=== PATIENT | female | born 1995 | race Caucasian/White ===

== ENCOUNTER 2021-02-03 06:41 | Emergency (ER) | payer BC ==
[~2021-02-03] VITALS: Ht 182.9 cm; Wt 79.5 kg
[2021-02-03] MEDS ORDERED: ALPRAZolam 0.25 MG TABLET PO ONE (07:15)
[2021-02-03] MEDS ORDERED: ALBUTEROL SULFATE 2.5 MG/3 ML NEBU. NEB ONE (07:15)
[2021-02-03 07:55] LABS: BACTERIA,URINE FEW /HPF (0-FEW); BILIRUBIN,URINE NEG (NEG); CLARITY,URINE CLEAR; COLOR,URINE YELLOW; GLUCOSE,URINE NEG (NEG); NITRITE,URINE NEG (NEG); RBC,URINE OCC /HPF (0-2); UROBILINOGEN,URINE 0.2 mg/dL (0.2 mg/dL)
[2021-02-03 07:56] LABS: SQUAMOUS EPITHELIAL CELL,UR MOD /LPF
--- NOTE | 2021-02-03 08:01 | RAD ---
XR CHEST 1V INDICATION: soa COMPARISON STUDY: None. FINDINGS: Lungs: Normal lung volume. No pulmonary mass or consolidation. The tracheobronchial tree and hilar st ructures are normal. Pleura: No pleural effusion or pneumothorax. Heart and Mediastinum: The cardiomediastinal silhouette is normal. The great vessels of the thorax ar e normal. Bones and Soft Tissues: The bones and soft tissues are within normal limits. IMPRESSION: No consolidation. Electronically signed by: Lico Nathan MD (02/03/2021 7:59 AM) [id number]
--- NOTE | 2021-02-03 08:11 | RAD ---
EXAM: Pelvic sonogram. HISTORY: Pain. TECHNIQUE: Transabdominal sonographic imaging of the pelvis was performed. COMPARISON: None. FINDINGS: The uterus measures 8.4 x 5.3 x 3.0 cm. The endometrial stripe measures 4 mm in thickness. There is an intrauterine contraceptive device in expected position within the endometrial cavity. The ovaries are normal in size and demonstrate normal blood flow. There is no pelvic free fluid. IMPRESSION: 1. IUD in expected position. 2. Otherwise, unremarkable pelvic sonogram. Electronically signed by: Dahiana Segal MD (02/03/2021 8:08 AM) [id number]
--- NOTE | 2021-02-03 08:18 | PHYS DOC ---
Past History Additional Past Medical Histor: SVT with ablation Past Surgical History: Other Additional Past Surgical Histo: SVT with ablation Alcohol Use: None General Adult EDM: Chief Complaint: GI PROBLEM HPI: HPI: 25 yo F presents to the ed with her friend, (patient consents to his/her/their knowledge and involvement in pts' medical care), complains of bilateral, sharp, nonradiating, lower abdominal pain that started after waking up to her alarm at 530 this morning with associated nausea. Last bowel movement was last night, normal brown color. Kyleena placed December 30 for prevention. Was taking oral control pill for 10 years and wanted "something easier." Had vaginal spotting last week. Past medical history of ovarian cysts and SVT with ablation in 2011. Reports for the past week she has had a sore throat, cough, nasal congestion and nausea. History of Covid last year and has received her moderna vaccination. No sexual activity for the past 2 years, male partners. History of treated chlamydia. Denies any associated vaginal bleeding, dysuria, hematuria, increased urinary frequency urgency, flank pain, or abnormal vaginal discharge/itching/odor. Review of Systems: Review of Systems: Constitutional: Denies fever or chills Eyes: Denies change in visual acuity HENT: Denies rhinorrhea, hoarse voice Respiratory: Denies hemoptysis or shortness of breath Cardiovascular: Denies chest pain or edema GI: Denies constipation, vomiting, bloody stools or diarrhea : Denies dysuria or vaginal bleeding Musculoskeletal: Denies back pain or joint pain or flank pain Integument: Denies rash or diaphoresis Neurologic: Denies headache, focal weakness or sensory changes Endocrine: Denies polyuria or polydipsia Lymphatic: Denies swollen glands Psychiatric: Denies depression or anxiety Current Medications: Current Meds: Current Medications Medications (Trade) Dose Ordered Sig/Melissa Start Time Stop Time Status Last Admin Dose Admin Albuterol Sulfate (Ventolin) 2.5 mg 1X ONCE 02/03/21 07:15 02/03/21 07:29 DC Alprazolam (Xanax) 0.25 mg 1X ONCE 02/03/21 07:15 02/03/21 07:29 DC Allergies: Allergies: Allergies Coded Allergies Type Severity Reaction Last Updated Verified No Known Drug Allergies 02/03/21 No Physical Exam: PE: Constitutional: Well developed, well nourished, no acute distress, non-toxic appearance. HENT: Normocephalic, atraumatic, Eyes: EOMI, conjunctiva normal, no discharge. Neck: Normal range of motion, supple, Cardiovascular: S1/2 present, regular rhythm Lungs & Thorax: Speaking in full sentences, bilateral equal chest rise, no tachypnea or increased work of breathing Abdomen: soft, no distention/rigidity/guarding, reports left lower quadrant and right lower quadrant pain with no McBurney's point tenderness or Rovsing sign, mildly uncomfortable with palpation-pain alleviated when putting her knees to her chest Skin: Warm, dry, no erythema, no rash. [] Back: No tenderness, no CVA tenderness. [] Extremities: No tenderness, no cyanosis, no lower extremity edema Neurologic: Alert and oriented X 3, normal motor function, normal sensory function, no focal deficits noted. [] Psychologic: Affect normal, judgement normal, mood normal. [] Current Patient Data: Labs: Laboratory Tests Test 02/03/21 07:17 02/03/21 07:32 Urine Collection Type Void Urine Color Yellow Urine Clarity Clear Urine pH 6.0 Urine Specific [place] 1.025 Urine Protein Neg (NEG-TRACE) Urine Glucose (UA) Neg mg/dL (NEG) Urine Ketones (Stick) Neg mg/dL (NEG) Urine Blood Trace (NEG) Urine Nitrite Neg (NEG) Urine Bilirubin Neg (NEG) Urine Urobilinogen Dipstick 0.2 mg/dL (0.2 mg/dL) Urine Leukocyte Esterase Neg (NEG) Urine RBC Occ /HPF (0-2) Urine WBC 1-4 /HPF (0-4) Urine Squamous Epithelial Cells Mod /LPF Urine Bacteria Few /HPF (0-FEW) POC Urine HCG, Qualitative hcg negative (Negative) Vital Signs: Vital Signs Date Time Temp Pulse Resp B/P (MAP) Pulse Ox O2 Delivery O2 Flow Rate FiO2 02/03/21 07:16 98.2 94 18 137/63 (87) 94 Room Air EKG: EKG: [] Radiology/Procedures: Radiology/Procedures: IMAGING REPORT Signed PATIENT: JOSÉ MIGUEL JAQUEZ ACCOUNT: [id number] : 1995 LOCATION: ER AGE: 25 SEX: F EXAM STATUS: REG ER ORD. PHYSICIAN: ROBERT GATICA DO REASON: soa PROCEDURE: CHEST AP ONLY XR CHEST 1V INDICATION: soa COMPARISON STUDY: None. FINDINGS: Lungs: Normal lung volume. No pulmonary mass or consolidation. The tracheobronchial tree and hilar structures are normal. Pleura: No pleural effusion or pneumothorax. Heart and Mediastinum: The cardiomediastinal silhouette is normal. The great vessels of the thorax are normal. Bones and Soft Tissues: The bones and soft tissues are within normal limits. IMPRESSION: No consolidation. Electronically signed by: Janell Nathan MD (02/03/2021 7:59 AM) [id number] DICTATED AND SIGNED BY: JANELL NATHAN MD DATE: 02/03/21 0758 CC: DAHIANA MEANS MD; ROBERT GATICA DO ~MTH0 0 IMAGING REPORT Signed PATIENT: JOSÉ MIGUEL JAQUEZ ACCOUNT: [id number] : 1995 LOCATION: ER AGE: 25 SEX: F EXAM STATUS: REG ER ORD. PHYSICIAN: ROBERT GATICA DO REASON: lower abd pain - 75mls omni 300 PROCEDURE: CT ABD PELV W/ IV CONTRST ONLY EXAM: Abdomen and pelvis CT with intravenous contrast. HISTORY: Pain. TECHNIQUE: Computed tomographic images of the abdomen and pelvis were obtained following the administration of intravenous contrast. Multiplanar reformatting was performed. *One or more of the following individualized dose reduction techniques were utilized for this examination: 1. Automated exposure control. 2. Adjustment of the mA and/or kV according to patient size. 3. Use of iterative reconstruction technique. COMPARISON: None. FINDINGS: Evaluation of the lower thorax demonstrates minimal posterior dependent and basilar atelectasis. There is no infiltrate or pleural effusion. No hepatic lesion is seen. The gallbladder, pancreas, spleen, stomach, adrenal glands and kidneys are unremarkable. There is no appendicitis. There is no bowel obstruction. There is no abnormal bowel wall thickening. The urinary bladder is unremarkable. There is an intrauterine contraceptive device within the endometrial cavity. There are multiple bilateral ovarian follicles. There is a dominant right ovarian follicle/follicular cyst measuring 2.0 cm. The aorta is normal in caliber. There is a retroaortic left renal vein, a normal variant. There are multiple prominent lymph nodes within the root of mesentery and pericecal distribution. This is typically physiologic in a patient of this age. There is no acute or suspicious osseous finding. IMPRESSION: 1. 2.0 cm physiologic dominant right ovarian follicle/follicular cyst. 2. Multiple prominent lymph nodes within the embryo the mesentery and pericecal distribution, within physiologic limits for patient age. 3. No evidence of appendicitis. Electronically signed by: Dahiana Barnes MD (02/03/2021 9:19 AM) [id number] no DICTATED AND SIGNED BY: DAHIANA BARNES MD DATE: 02/03/21915 CC: DAHIANA MEANS MD; ROBERT GATICA DO ~MTH0 0 IMAGING REPORT Signed PATIENT: JOSÉ MIGUEL JAQUEZ ACCOUNT: [id number] : 1995 LOCATION: ER AGE: 25 SEX: F EXAM STATUS: REG ER ORD. PHYSICIAN: ROBERT GATICA DO REASON: pelvic pain, r/o torsion or iud malposition PROCEDURE: PELVIS COMPLETE EXAM: Pelvic sonogram. HISTORY: Pain. TECHNIQUE: Transabdominal sonographic imaging of the pelvis was performed. COMPARISON: None. FINDINGS: The uterus measures 8.4 x 5.3 x 3.0 cm. The endometrial stripe measures 4 mm in thickness. There is an intrauterine contraceptive device in expected position within the endometrial cavity. The ovaries are normal in size and demonstrate normal blood flow. There is no pelvic free fluid. IMPRESSION: 1. IUD in expected position. 2. Otherwise, unremarkable pelvic sonogram. Electronically signed by: Dahiana Barnes MD (02/03/2021 8:08 AM) [id number] DICTATED AND SIGNED BY: DAHIANA BARNES MD DATE: 02/03/21807 CC: DAHIANA MEANS MD; ROBERT GATICA DO ~MTH0 0 Heart Score: C/O Chest Pain: No Risk Factors: Risk Factors: DM, Current or recent (<one month) smoker, HTN, HLP, family history of CAD, obesity. Risk Scores: Score 0 - 3: 2.5% MACE over next 6 weeks - Discharge Home Score 4 - 6: 20.3% MACE over next 6 weeks - Admit for Clinical Observation Score 7 - 10: 72.7% MACE over next 6 weeks - Early Invasive Strategies Course & Med Decision Making: Course & Med Decision Making Pertinent Labs and Imaging studies reviewed. (See chart for details) Patient calm, sleeping, no active distress. Patient states Toradol relieved her symptoms and pain is almost gone/tolerable. No IUD malposition, blood flow to both ovaries on US. CT with no evidence of bowel obstruction or appendicitis, concern for right ovarian cyst. Pt HD and in no distress. Will discharge home with strict ED return precautions were given for severe pain, fever, abnormal vaginal discharge or urinary complaints. Encouraged urgent outpatient follow-up with PMD and INTERVENTIONAL NEURORADIOLOGIST for definitive management pelvic pain, to consider Pap smear and STI testing. Life-threatening processes were considered but are low suspicion at this time, given history, physical exam and ED workup. Pt was educated on all prescription medications and adverse effects. All patient's questions were answered and pt was stable at time of discharge. Life/limb-threatening differential includes but is not limited to, ectopic , septic , sepsis/infection (endometritis, sti/pid, cystitis, pyelonephritis, Carmela's gangrene or necrotizing fasciitis, abscess), ovarian torsion, ruptured hemorrhagic ovarian cyst, endometriosis, ureterolithiasis, thrombophlebitis, hemorrhage/DIC, organ prolapse, abdominal aortic aneurysm, mesenteric ischemia, neoplasm, bowel obstruction or surgical abdomen. I have spoken with the patient and/or caregivers. I explained the patient's condition, diagnoses and treatment plan based on the information available to me at this time. I have answered the patient and/or caregiver's questions and addressed any concerns. The patient and/or caregivers have a good understanding of patient's diagnosis, condition and treatment plan as can be expected at this point. Vital signs have been stable. Patient's condition is stable and appropriate for discharge from the emergency department. Patient will pursue further outpatient evaluation with primary care physician or other designated or consulting physician as outlined in the discharge instructions. The patient and/or caregivers are agreeable to this plan of care and follow-up instructions have been explained in detail. The patient and/or caregivers have received these instructions in written form and have expressed an understanding of the discharge instructions. The patient and/or caregivers are aware that any significant change of condition or worsening of symptoms should prompt immediate return to this or the closest emergency department or call to 911. Alejandro Disclaimer: Alejandro Disclaimer: This electronic medical record was generated, in whole or in part, using a voice recognition dictation system. Departure Departure: Impression: Primary Impression: Abdominal pain Additional Impression: Right ovarian cyst Disposition: HOME / SELF CARE / HOMELESS Condition: STABLE Referrals: DAHIANA MEANS MD (PCP) Follow-up with your primary care physician in 24 to 48 hours OR FOLLOW UP WITH FAMILY MEDICINE: [address] [place] [address] Patient Instructions: Abdominal Pain, Ovarian Cyst Additional Instructions: FOLLOW UP WITH INTERVENTIONAL NEURORADIOLOGIST: FOR DEFINITIVE MANAGEMENT of pelvic pain, consider pap exam [facility] [address] [place] [address] EMERGENCY DEPARTMENT GENERAL DISCHARGE INSTRUCTIONS Thank you for coming to [facility] (ED) today and trusting us with you care. We trust that you had a positivie experience in our Emergency Department. If you wish to speak to the department management, you may call the director at [phone]. YOUR FOLLOW UP INSTRUCTIONS ARE FOLLOWS: 1. Do you have a private Doctor? If you do not have a private doctor, please ask for a resource list of physicians or clinics that may be able to assist you with follow up care. 2. The Emergency Physician has interpreted your x-rays. The X-Ray specialist will also review them. If there is a change in the findings, you will be notified in 48 hours when at all possible. 3. A lab test or culture has been done, your results will be reviewed and you will be notified if you need a change in treatment. ADDITIONAL INSTRUCTIONS AND INFORMATION: 1. Your care today has been supervised by a physician who is specially trained in emergency care. Many problems require more than one evaluation for a complete diagnosis and treatment. We recommend that you schedule your follow up appointment as recommended to ensure complete treatment of you illness or injury. If you are unable to obtain follow up care and continue to have a problem, or if your condition worsens, we recommend that you return to the ED. 2. We are not able to safely determine your condition over the phone nor are we able to give sound medical advice over the phone. For these safety reasons, if you call for medical advice we will ask you to come to the ED for further evaluation. 3. If you have any questions regarding these discharge instructions please call the ED at [phone]. SAFETY INFORMATION: In the interest of safety, wellness, and injury prevention; we encourage you to wear your sealbelt, if you smoke; quite smoking, and we encourage family to use a protective helmet for bicycling and other sporting events that present an increased risk for head injury. IF YOUR SYMPTOMS WORSEN OR NEW SYMPTOMS DEVELOP, OR YOU HAVE CONCERNS ABOUT YOUR CONDITION; OR IF YOUR CONDITION WORSENS WHILE YOU ARE WAITING FOR YOUR FOLLOW UP APPOINTMENT; EITHER CONTACT YOUR PRIMARY CARE DOCTOR, THE PHYSICIAN WHOSE NAME AND NUMBER YOU WERE GIVEN, OR RETURN TO THE ED IMMEDIATELY. [facility] DO Feb 03, 2021 08:18
[2021-02-03 08:38] LABS: BASO % 0 % (0-3); EOS # 0.1 x10^3/uL (0.0-0.7); EOS % 1 % (0-3); HEMATOCRIT 41.2 % (36.0-47.0); HEMOGLOBIN 13.8 g/dL (12.0-15.5); LYMPH # 1.8 x10^3/uL (1.0-4.8); LYMPH % 22 % (24-48); MEAN CORPUSCULAR HEMOGLOBIN 30 pg (25-35); MEAN CORPUSCULAR HGB CONC 34 g/dL (31-37); MEAN CORPUSCULAR VOLUME 91 fL (79-100); MONO # 0.6 x10^3/uL (0.0-1.1); MONO % 7 % (0-9); NEUT # 5.7 x10^3uL (1.8-7.7); NEUT % 70 % (31-73); PLATELET COUNT 204 x10^3/uL (140-400); RED BLOOD COUNT 4.54 x10^6/uL (3.50-5.40); RED CELL DISTRIBUTION WIDTH 13.3 % (11.5-14.5); WHITE BLOOD COUNT 8.2 x10^3/uL (4.0-11.0)
[2021-02-03 08:40] LABS: CALCIUM 9.1 mg/dL (8.5-10.1); CREATININE 0.7 mg/dL (0.6-1.0); GFR 103.7; POTASSIUM 4.5 mmol/L (3.5-5.1)
[2021-02-03] MEDS: IOHEXOL 300 MG/ML 75 ML VIAL. IV ONE (08:44)
[2021-02-03 08:46] LABS: ALBUMIN 3.8 g/dL (3.4-5.0); ALBUMIN/GLOBULIN RATIO 1.1 (1.0-1.7); C REACTIVE PROTEIN 0.7 mg/L (0-3.3); TOTAL BILIRUBIN 0.3 mg/dL (0.2-1.0); TOTAL PROTEIN 7.2 g/dL (6.4-8.2)
--- NOTE | 2021-02-03 09:21 | RAD ---
EXAM: Abdomen and pelvis CT with intravenous contrast. HISTORY: Pain. TECHNIQUE: Computed tomographic images of the abdomen and pelvis were obtained following the administ ration of intravenous contrast. Multiplanar reformatting was performed. *One or more of the following individualized dose reduction techniques were utilized for this examina tion: 1. Automated exposure control. 2. Adjustment of the mA and/or kV according to patient size. 3. Use of iterative reconstruction technique. COMPARISON: None. FINDINGS: Evaluation of the lower thorax demonstrates minimal posterior dependent and basilar atelect asis. There is no infiltrate or pleural effusion. No hepatic lesion is seen. The gallbladder, pancrea s, spleen, stomach, adrenal glands and kidneys are unremarkable. There is no appendicitis. There is no bowel obstruction. There is no abnormal bowel wall thickening. The urinary bladder is unremarkable. There is an intrauterine contraceptive device within the endomet rial cavity. There are multiple bilateral ovarian follicles. There is a dominant right ovarian follic le/follicular cyst measuring 2.0 cm. The aorta is normal in caliber. There is a retroaortic left renal vein, a normal variant. There are m ultiple prominent lymph nodes within the root of mesentery and pericecal distribution. This is typica lly physiologic in a patient of this age. There is no acute or suspicious osseous finding. IMPRESSION: 1. 2.0 cm physiologic dominant right ovarian follicle/follicular cyst. 2. Multiple prominent lymph nodes within the embryo the mesentery and pericecal distribution, within physiologic limits for patient age. 3. No evidence of appendicitis. Electronically signed by: Dahiana Segal MD (02/03/2021 9:19 AM) [id number] no
[2021-02-03] MEDS: KETOROLAC 15 MG/ML VIAL. IVP ONE (09:40)
[2021-02-03 10:01] VITALS: BP 124/80
== END 2021-02-03 10:28 | disposition home or self-care (01) ==
LOC: ER 06:41
DX: N83.201 Unspecified ovarian cyst, right side (principal); Z20.822 Contact with and (suspected) exposure to COVID-19
CPT/HCPCS: 36415; 71045; 74177; 76856; 80053; 81001; 81025; 85025; 86140; 87426; 96374; 99285; C9803; J1885; Q9967; U0003